=== PATIENT | female | born 1990 | race Caucasian/White ===

== ENCOUNTER 2019-12-10 10:02 | Emergency (ER) | payer OTHER, SELFPAY ==
--- NOTE | ~2019-12-10 | XR_ITS ---
EXAMINATION: XR chest 1V portable DATE: 12/10/2019 11:14 INDICATION: Diabetic ketoacidosis. TECHNIQUE: frontal view of the chest was obtained. COMPARISON: None FINDINGS: The lungs are clear with no focal airspace opacities, pulmonary edema, pleural effusion or pneumothor ax. The cardiomediastinal silhouette is normal. Visualized bones and soft tissues are unremarkable. IMPRESSION: 1. Normal chest radiograph. Reviewed, dictated and finalized at location A. IMPRESSION: 1. Normal chest radiograph.
[2019-12-10 10:05] VITALS: BP 128/60; PULSE 85; RESP 12; TEMP 36.1; O2SAT 95
[2019-12-10 10:10] VITALS: PULSE 135
[2019-12-10] MEDS: INSULIN HUMAN REGULAR (*BKC) 100 UNITS in SODIUM CHLORIDE 0.9% IV 99 ML IV CONT (11:04)
[2019-12-10] MEDS: ONDANSETRON INJ 4 MG/2 ML VIAL 8 MG IV PUSH (11:04)
[2019-12-10 11:06] LABS: Hematocrit 44.3 % (35.0-49.0); Hemoglobin 13.7 g/dL (12.0-15.0); Mean Corpuscular HGB Conc 30.9 g/dL (32.0-36.0); Mean Corpuscular Hemoglobin 30.2 pg (27.0-31.0); Mean Corpuscular Volume 97.6 fL (78.0-102.0); Mean Platelet Volume 11.7 fl (9.2-11.8); Platelet Count Result 473 K/mm3 (150-420); Red Blood Count 4.54 M/mm3 (4.20-5.40); Red Cell Distribution Width 12.5 % (11.6-14.4)
[2019-12-10 11:08] LABS: White Blood Count 33.1 K/mm3 (4.8-10.8)
[2019-12-10] MEDS: SODIUM CHLORIDE 0.9% IV 2,000 ML 999 ML IV CONT (11:11)
[2019-12-10 11:23] LABS: Acetaminophen 0 ug/mL (10-30); Ethanol < 3 mg/dL (0-6); Salicylate 7.4 mg/dL (2.8-20.0)
[2019-12-10 11:26] LABS: Lactic Acid Reflex 3.4 mmol/L (0.4-2.0)
[2019-12-10 11:29] LABS: Add Urine Microscopic? YES; Appearance Urine Clear (Clear); Bilirubin Urine Negative (Negative); Blood Urine 1+ (Negative); Color Urine Yellow (Yellow); Glucose Urine UA 3+ (Negative); Ketones Urine 3+ (Negative); Leukocyte Esterase Ur Negative LEU/UL (Negative); Nitrate Urine Negative (Negative); Protein Urine Negative (Negative); Urobilinogen Urine 0.2 mg/dL (0.2-1.0)
[2019-12-10 11:31] LABS: Band Neutrophils Percent 0 % (0-6); Basophils Percent Manual 0 % (0-1); Eosinophils Percent Manual 0 % (1-6); Lymphocytes Absolute Manual 1.65 K/mm3 (1.1-4.5); Lymphocytes Percent Manual 5 % (18-44); Metamyelocytes Percent 0 %; Monocytes Absolute Manual 0.99 K/mm3 (0.1-0.90); Monocytes Percent Manual 3 % (3-9); Myelocytes Percent 2 %; Neutrophils Absolute Manual 29.79 K/mm3 (1.7-7.2); Neutrophils Percent Manual 90 % (46-73); Platelet Estimate Increased (Adequate); Total Cells Counted 100
[2019-12-10 11:32] VITALS: BP 118/63; PULSE 130; RESP 20; O2SAT 97
[2019-12-10 11:33] LABS: Alanine Aminotransferase 17 U/L (14-59); Albumin Level 3.7 g/dL (3.4-5.0); Alkaline Phosphatase 110 U/L (46-116); Anion Gap 37 mmol/L (8-16); Aspartate Amino Transferase 9 U/L (15-37); Bilirubin,Total 0.7 mg/dL (0.00-1.00); Blood Urea Nitrogen 49 mg/dL (7-18); Calcium 7.9 mg/dL (8.5-10.1); Carbon Dioxide 8 mmol/L (21-32); Chloride 79 mmol/L (98-108); Estimated CRCL calculation 24 ml/min; Estimated Glomerular Filt Rate 22; Magnesium 2.5 mg/dL (1.8-2.4); Sodium 124 mmol/L (136-145); Total Protein 7.3 g/dL (6.4-8.2)
[2019-12-10 11:34] LABS: Phosphorus > 8.0 mg/dL (2.6-4.7); Potassium 6.6 mmol/L (3.5-5.1)
[2019-12-10 11:35] LABS: Bacteria Urine None seen /hpf; RBC Urine 0-2 /hpf (0-2); WBC Urine 0-3 /hpf (0-3)
[2019-12-10 11:48] LABS: Glucose > 800 mg/dL (70-99); Osmolality Calculated 310 mOsm/kg (285-295)
[2019-12-10 11:49] LABS: Amphetamine Screen Urine Negative (Negative); Barbiturate Screen Urine Negative (Negative); Benzodiazepines Screen Urine Negative (Negative); Cannabinoid Screen Urine Negative (Negative); Cocaine Screen Urine Negative (Negative); Methadone Screen Urine Negative (Negative); Opiate Screen Urine Negative (Negative); Phencyclidine Screen Urine Negative (Negative)
--- NOTE | 2019-12-10 11:49 | PC.NURSE ---
1030 Multiple attempts made at IV insertion, pt. very weak, lethargic and ERP discussed central line c pt. Pt. agreeable via verbal consent to placement.
[2019-12-10 12:16] LABS: Base Excess ABG -23.7 mmol/L (0-2); HCO3 ABG 5.4 mmol/L (23-29); Oxygen Content ABG 16.9 %vol (16.0-22.0); Oxygen Saturation ABG 85.5 % (95-97); Oxyhemoglobin 84.8 % (94-100); PCO2 ABG 20.5 mmHg (35-45); PO2 ABG 54.8 mmHg (80-90); Total Hemoglobin 14.2 g/dL; pH ABG 7.04 (7.35-7.45)
[2019-12-10 12:18] LABS: Device ROOM AIR; Modified Allen's Test Unable to perform; Site Drawn LEFT RADIAL
[2019-12-10 12:29] VITALS: BP 120/60; PULSE 130; RESP 20; TEMP 36.7; O2SAT 100
--- NOTE | 2019-12-10 12:37 | PC.NURSE ---
Call placed to [facility] for pt. transfer, report given to janis Grider, will await call back from for report.
--- NOTE | 2019-12-10 12:45 | ED.GENADULT ---
HPI - General Adult General Chief complaint: Weakness Stated complaint: Ambulance Source: patient History of Present Illness HPI narrative: PATIENT IS A 29-YEAR-OLD FEMALE WHO PRESENTS TODAY HOME WITH SOME ALTERED LEVEL OF CONSCIOUSNESS. PATIENT STATES THAT SHE HAS BEEN VOMITING FOR THE LAST SEVERAL DAYS HAS BECOME PROGRESSIVELY GETTING WORSE. SHE HAS BEEN TAKING HER INSULIN, SHE STATES HER LAST DOSE WAS 45 UNITS OF LONG-ACTING THIS A.M.. PATIENT TELLS ME SHE HAS BEEN ILL FOR ABOUT A WEEK. SHE IS ACTIVELY VOMITING. SHE TELLS ME IT HAS BEEN SEVERAL YEARS SINCE SHE HAS BEEN IN DKA. SHE NORMALLY GETS HER CARE IN THE [facility]. PATIENT APPEARS VERY PALE AND VERY WEAK. Onset (ago): minute(s) Related Data Home Medications Medication Instructions Recorded Confirmed Unable to Obtain Home Medications 12/10/19 12/10/19 Allergies Allergy/AdvReac Type Severity Reaction Status Date / Time Penicillins Allergy Unknown Verified 12/10/19 11:14 [facility] Social History Social History (Updated 12/10/19 @ 12:55 by Esther Nino MD) Social History: PATIENT IS UNABLE TO RELATE THIS AT CURRENT TIME DUE TO HER FATIGUE AND MEDICAL CONDITION Exam Const: General: ill appearing Nutritional Appearance: thin Other: DEHYDRATED AND WEAK HENMT: Mouth: Yes dry mucous membranes Eyes: Conjunctivae: conjunctivae normal Pupils: Equal, round and reactive pupils present Neck: Neck: normal visual inspection Chest: Chest palpation & inspection: normal inspection of the chest Resp: Effort & Inspection: normal respiratory effort Auscultation: clear to auscultation bilaterally Cardio: Rate: tachycardic GI: GI Palp: Yes Soft to palpation and No Tenderness to palpation present (GI) Auscultation: normal bowel sounds Urinary Catheter: Urinary Catheter: patent and draining Back/Spine/Pelvis: Back: no CVA tenderness Skin: General skin exam: normal color and pallor Neuro: Other: ALERT AND IN NO DISTRESS Extrem: General: normal to inspection Psych: Attitude: cooperative Thought content: Yes Normal thought content present Course Vital Signs Vital signs: Vital Signs Temperature 36.1 C L 12/10/19 10:05 Pulse Rate 85 12/10/19 10:05 Respiratory Rate 12 12/10/19 10:05 Blood Pressure 128/60 12/10/19 10:05 Pulse Oximetry 95 12/10/19 10:05 Temperature 36.6 C 12/10/19 13:35 Pulse Rate 122 H 12/10/19 13:35 Respiratory Rate 18 12/10/19 13:35 Blood Pressure 123/65 12/10/19 13:35 Pulse Oximetry 100 12/10/19 13:35 Transfer Transfered to: [place] Accepting physician: dR. Lozano B/c we were unable to transport on insulin ggt, med was stopped and pt transported to [place] without insulin drip. It is a very breif transport Procedures Central Line Placement Right SC: Central Line Date: 12/10/19 Central Line Time: 11:50 Discussed w/ the patient/family/POA,the placement of a central venous catheter, including its clinical necessity/indication & associated potential risks, benifits and alternatives.: Yes Performed Emergently - Given emergent patient condition, temporal constraints may have precluded informed consent.: Yes Patient Placed on Monitor/Pulse Ox: Yes Max. Sterile Barrier Technique: Caps, large sterile sheet and hand hygiene Central Line Prep: 2% chlorhexidine scrub and sterile drapes applied Technique: sterile prep/drape Local Anesthetic: lidocaine 1% Amount of anesthesia used (mL): 5 Ultrasound Used for Placement: No Central Line Lumen Inserted: triple Post Procedure: sutured in place, good blood return, all ports aspirated, flushed, capped and sterile dressing applied Post Procedure X-Ray: tip of catheter in good position and no pneumothorax seen Patient Tolerated Procedure: well and no complications Complications: none Medical Decision Making MDM Narrative Medical decision traci
[2019-12-10] MEDS: SODIUM CHLORIDE 0.9% IV 1,000 ML 999 ML IV CONT (13:16)
[2019-12-10 13:35] VITALS: BP 123/65; PULSE 122; RESP 18; TEMP 36.6; O2SAT 100
[2019-12-10 13:42] LABS: Glucose Point of Care > 450 (65-105)
--- NOTE | 2019-12-10 13:49 | PC.NURSE ---
Blood sugar still reading over 500
[2019-12-10 14:01] LABS: Reflex Lactic Acid Yes or No Add Lactic
== END 2019-12-10 13:55 | disposition short-term general hospital (02) ==
PROVIDERS: Emergency Provider Emergency Medicine
DX: E10.10 Type 1 diabetes mellitus with ketoacidosis without coma (principal); E86.0 Dehydration
CPT/HCPCS: 36556; 36415; 36600; 71045; 80053; 80307; 81001; 82010; 82805; 83605; 83735; 84100; 85025; 96361; 96365; 96366; 96368; 96375; 99283; 99285; C1751; J1815; J1956; J2405; J7030

== ENCOUNTER 2019-12-10 15:10 | Inpatient (IN) | payer OTHER, SELFPAY ==
[2019-12-10 15:30] LABS: Glucose Point of Care > 500 (65-105)
[2019-12-10] MEDS: INSULIN HUMAN REGULAR (*BKC) 100 UNITS in SODIUM CHLORIDE 0.9% IV 99 ML 10.5 UNITS IV CONT (15:30)
[2019-12-10] MEDS: SODIUM CHLORIDE 0.9% IV 1,000 ML 150 ML IV CONT (15:30)
--- NOTE | 2019-12-10 15:50 | PM.IMHP ---
H&P: HPI History of Present Illness Date/Time: 12/10/19 15:50 Chief complaint: DKA Narrative: Eve Lala is a 29-year-old female with type 1 diabetes mellitus who presented to the emergency department at [facility] earlier today via EMS with weakness and altered levels of consciousness found to be in diabetic ketoacidosis for which she is being transferred to [facility] for further management. She has never been seen at this facility before and apparently gets most of her care in the [facility]. At the time my evaluation she is somnolent but arousable however is very somnelent and thus she is not a great historian. From what I can gather from the records, she has been feeling poorly for nearly one weeks time with nausea and vomiting. On occasion she has noticed dark brown emesis which she believes may be blood and she endorses heartburn and a burning sensation in her throat. She has become progressively more weak with lightheadedness and dizziness, as well as some confusion today. She states compliance with her insulin, reportedly taking 45 units of long-acting insulin this morning. She has not been in DKA for several years, reportedly. At the time my evaluation she is somnolent and is complaining of continued nausea and dry heaves. She endorses feelings of racing heart and mild shortness of breath. She has not had fever, chills, or sweats. She denies cough, sinus congestion, rhinorrhea, otalgia, and odynophagia. No chest pain or pleuritic pain. She denies sick contacts or exposure to those positive for COVID-19. Review of Systems Review of Systems: Narrative: Twelve systems were reviewed with pertinent positives and negatives as per HPI. Given her somnolence, it is somewhat difficult to get a full review of systems. Except as documented in the HPI, she also reports mild dysuria. She does not remember when she last had a menstrual cycle. No headache or neck ache. She is not recall her last hemoglobin A1c. Except as documented, all other systems were reviewed and are negative. [facility] Past Medical History Medical History Type 1 diabetes mellitus Diagnosed at the age of 16. Hemoglobin A1c on 12/10/2019 was 10%. Surgical History Surgical History (Updated 12/10/19 @ 16:42 by Angeles Castro PA-C) Status post myringotomy with insertion of tube Social History Social History (Updated 12/10/19 @ 16:44 by Angeles Castro PA-C) Social History: The patient lives in [place]. She relates to me that she has no children. She is not employed. She admits to smoking cigarettes, but does not quantify. She denies alcohol and illicit substance use. She does not want anyone contacted that she is in the hospital, and will not name a surrogate decision maker. Smoking status: Current every day smoker Alcohol intake: unknown Substance use: unknown Other substance usage details: ALOC Gender identity (if verbalized by the patient): Female Spiritual care concerns: No (ALOC) Meds Home Medications and Allergies Home Medications Medication Instructions Recorded Confirmed Type Admelog SoloStar U-100 Insulin TIDWMEAL 12/11/19 History Basaglar KwikPen U-100 Insulin HS 12/11/19 History Allergies Allergy/AdvReac Type Severity Reaction Status Date / Time Penicillins Allergy Unknown Verified 12/10/19 11:14 Exam Narrative: Exam Narrative: General: Thin, ill-appearing female, frequently dry heaving. In between dry heaving, she will close her eyes and is difficult to get her to answer any questions. She is soft spoken. HEENT: Atraumatic. Pupils are 4 mm and are reactive. Conjunctiva mildly injected. Sclerae anicteric. Oral mucosa is extremely dry. Oropharynx not visualized as she would not open her mouth very far. Neck: Supple. No nuchal rigidity or lymphadenopathy. Respiratory: Respirations are mildly tachypneic
[2019-12-10 16:00] VITALS: BP 101/58; PULSE 130; PULSE 137; RESP 16; TEMP 37.1; O2SAT 100
[2019-12-10 16:30] LABS: Anion Gap 24 mmol/L (8-16); Blood Urea Nitrogen 32 mg/dL (7-17); Calcium 7.2 mg/dL (8.4-10.2); Carbon Dioxide 8 mmol/L (22-30); Chloride 105 mmol/L (98-107); Estimated Glomerular Filt Rate 53; Glucose 481 mg/dL (65-105); Magnesium 2.1 mg/dL (1.6-2.3); Phosphorus 2.7 mg/dL (2.5-4.5); Sodium 137 mmol/L (137-145)
[2019-12-10 16:31] LABS: Albumin Level 3.6 g/dL (3.5-5.1); Anion Gap 24 mmol/L (8-16); Blood Urea Nitrogen 32 mg/dL (7-17); Calcium 7.2 mg/dL (8.4-10.2); Carbon Dioxide 9 mmol/L (22-30); Chloride 104 mmol/L (98-107); Estimated Glomerular Filt Rate 53; Glucose 476 mg/dL (65-105); Phosphorus 2.6 mg/dL (2.5-4.5); Potassium 4.9 mmol/L (3.4-5.0); Sodium 137 mmol/L (137-145)
[2019-12-10 16:32] LABS: Anion Gap 22 mmol/L (8-16); Blood Urea Nitrogen 33 mg/dL (7-17); Calcium 7.3 mg/dL (8.4-10.2); Carbon Dioxide 10 mmol/L (22-30); Chloride 105 mmol/L (98-107); Estimated Glomerular Filt Rate 53; Glucose 473 mg/dL (65-105); Sodium 137 mmol/L (137-145)
[2019-12-10 17:39] LABS: Lactic Acid 1.1 mmol/L (0.7-2.1); Salicylate < 1.0 mg/dL (2-20)
[2019-12-10 17:42] LABS: CRP 0.9 mg/dL (<1.0)
[2019-12-10 18:00] VITALS: BP 116/68; PULSE 130; RESP 18; O2SAT 100
[2019-12-10 18:03] LABS: Glucose Point of Care 390 (65-105)
[2019-12-10 18:03] LABS: Glucose Point of Care 441 (65-105)
[2019-12-10 18:38] LABS: Glucose Point of Care 315 (65-105)
[2019-12-10 20:00] VITALS: BP 122/54; PULSE 129; RESP 12; TEMP 36.9; O2SAT 100
[2019-12-10] MEDS: KCL 20 MEQ/D5/0.45% SOD CHL 1,000 ML 150 ML IV CONT (20:37)
[2019-12-10] MEDS: FAMOTIDINE 20 MG/2 ML VIAL IV PUSH (21:00)
[2019-12-10 21:06] LABS: Add Urine Microscopic? YES; Appearance Urine Clear (Clear); Bilirubin Urine Negative (Negative); Blood Urine 1+ (Negative); Color Urine Straw (Yellow); Glucose Urine UA 3+ mg/dL (Negative); Ketones Urine 2+ mg/dL (Negative); Leukocyte Esterase Ur Negative LEU/UL (NEGATIVE); Mucus Urine Rare /lpf; Nitrate Urine Negative (Negative); Protein Urine Negative (Negative); RBC Urine 0-2 /hpf (0-2); Specific Grav Ur 1.015 (1.001-1.035); Squamous Epithelial Cell Urine Few /hpf (Few); Urobilinogen Urine Negative mg/dL (<2.0); WBC Urine 0-3 /hpf (0-3)
--- NOTE | 2019-12-10 21:10 | PC.NURSE ---
bedside urine test was negative
[2019-12-10 22:00] VITALS: BP 122/57; PULSE 120; RESP 14; O2SAT 99
[2019-12-11] VITALS (10 sets, daily range): BP systolic 116–138; BP diastolic 62–89; PULSE 108–119; RESP 13–21; TEMP 36.8–37.4; O2SAT 98–100
[2019-12-11 00:31] LABS: Glucose Point of Care 174 (65-105)
[2019-12-11 00:37] LABS: Anion Gap 3 mmol/L (8-16); Blood Urea Nitrogen 23 mg/dL (7-17); Calcium 7.7 mg/dL (8.4-10.2); Carbon Dioxide 24 mmol/L (22-30); Chloride 113 mmol/L (98-107); Estimated Glomerular Filt Rate > 60; Glucose 165 mg/dL (65-105); Sodium 140 mmol/L (137-145)
[2019-12-11 01:37] LABS: Glucose Point of Care 163 (65-105)
[2019-12-11] MEDS: INSULIN GLARGINE (*BKC) 100 UNITS/ML 45 UNITS SUB-Q (02:00)
[2019-12-11] MEDS: SODIUM CHLORIDE 0.9% IV 1,000 ML 50 ML IV CONT (02:30)
[2019-12-11 04:53] LABS: Basophils Percent Auto 0.1 % (0.2-1.2); Hematocrit 33.5 % (37.0-47.0); Hemoglobin 11.6 g/dL (12.0-15.0); Immature Granulocyte Absolute 0.25 K/mm3 (0.00-0.031); Immature Granulocyte Percent A 1.1 % (0-0.5); Lymphocytes Absolute Auto 1.15 K/mm3 (0.9-3.2); Mean Corpuscular HGB Conc 34.6 g/dl (32-36); Mean Corpuscular Hemoglobin 30.1 pg (26-34); Mean Platelet Volume 10.4 fl (7.4-10.4); Monocytes Absolute Auto 1.5 K/mm3 (0.1-0.6); Monocytes Percent Auto 6.5 % (2.6-8.5); Neutrophils Absolute Auto 20.2 K/mm3 (1.3-6.7); Neutrophils Percent Auto 87.3 % (45.5-73.1); Platelet Count Result 302 k/mm3 (150-375); Red Blood Count 3.85 M/mm3 (4.2-5.4); Red Cell Distribution Width 12.8 % (11.5-14.5); White Blood Count 23.2 K/mm3 (4.5-10.0)
[2019-12-11 05:07] LABS: Alanine Aminotransferase 10 U/L (4-35); Albumin Level 3.1 g/dL (3.5-5.1); Alkaline Phosphatase 73 U/L (38-126); Anion Gap 9 mmol/L (8-16); Aspartate Amino Transferase 12 U/L (14-36); Bilirubin,Total 0.3 mg/dL (0.2-1.3); Blood Urea Nitrogen 19 mg/dL (7-17); Calcium 7.7 mg/dL (8.4-10.2); Carbon Dioxide 19 mmol/L (22-30); Chloride 110 mmol/L (98-107); Estimated Glomerular Filt Rate > 60; Glucose 222 mg/dL (65-105); Phosphorus 2.5 mg/dL (2.5-4.5); Potassium 4.1 mmol/L (3.4-5.0); Sodium 138 mmol/L (137-145)
[2019-12-11 05:28] LABS: Lactic Acid Reflex < 0.5 mmol/L (0.7-2.1)
[2019-12-11] MEDS: LACTATED RINGERS 1,000 ML 999 ML IV CONT (08:10)
[2019-12-11 08:21] LABS: Glucose Point of Care 285 (65-105)
[2019-12-11] MEDS: FAMOTIDINE 20 MG/2 ML VIAL IV PUSH ×2 (08:24→22:00)
[2019-12-11] MEDS: INSULIN ASPART (*BKC) 100 UNITS/ML SUB-Q ×4 (08:24→18:46)
--- NOTE | 2019-12-11 08:55 | WPDCNINT ---
Assessment and Plan Assessment and plan (1) Diabetic ketoacidosis, type I: Code(s): E10.10 - Type 1 diabetes mellitus with ketoacidosis without coma Status: Acute Assessment and Plan: patient presents to [facility] with hyperglycemia, nausea, vomiting, weakness, dizziness, confusion - was found to be in DKA, was given adequate IV fluids, started on insulin infusion and transferred to [facility] ICU for further management - anion gap is closed this morning, patient was transition to long-acting insulin and sliding scale insulin along with Accu-Cheks - hemoglobin A1c is 10.0 this admission - patient is a poor historian and refusing to provide information regarding her compliance with insulin (2) Acute kidney injury: Code(s): N17.9 - Acute kidney failure, unspecified Status: Acute Assessment and Plan: patient initially presented with of 2.6 on admission. Likely related to polyuria, hypovolemia, diabetes related, nausea vomiting - patient was adequately fluid-resuscitated, adequate urine output, - creatinine down to 0.7 - continue monitor renal function, electrolytes and urine output (3) Leukocytosis: Code(s): D72.829 - Elevated white blood cell count, unspecified Status: Acute Assessment and Plan: leukocytosis likely stress lately. UA does not reveal a UTI, chest x-ray is clear without any evidence of acute cardiopulmonary disease - WBC count trending down, continue to monitor (4) Metabolic encephalopathy: Code(s): G93.41 - Metabolic encephalopathy Status: Acute Assessment and Plan: likely secondary to DKA, acute kidney injury, electrolyte abnormality - encephalopathy improving, continue to monitor Additional Plan discussed with patient updated her with her condition and plan of care code status: Full code critical care time spent: 38 minutes Due to a high probability of clinically significant, life threatening deterioration, the patient required my highest level of preparedness to intervene emergently and I personally spent this critical care time directly and personally managing the patient. This critical care time included obtaining a history; examining the patient; pulse oximetry; ordering and review of studies; arranging urgent treatment with development of a management plan; evaluation of patient's response to treatment; frequent reassessment; and discussions with other providers. It was exclusive of separately billable procedures and treating other patients and teaching time. Please see Assessment and Plan section and the rest of the note for further information on patient assessment and treatment [facility] Consult Note Consult date: 12/11/19 Time Seen: 07:02 Reason for consult: diabetic ketoacidosis, nausea, vomiting, lightheadedness, weakness and confusion HPI: Eve Lala is a 29 year old female with significant past medical history of diabetes type 1 on long-acting insulin presented to [facility] on 12/10/2019 with complains of weakness, confusion, hyperglycemia, nausea and vomiting. Patient was found to be in DKA, received IV fluids and started on insulin infusion and transferred to [facility] ICU for further management. Patient also complained of tachycardia and mild shortness of breath. She denies any fevers chills or sweats. She denies any cough, sinus congestion. She denies any exposure to COVID-19. Transferred to [place] ICU for further management. patient seen and examined this morning. Is somnolent, does not want to answer questions. States she still not feeling too well, but denies nausea, vomiting, abdominal pain, shortness of breath, chest pain. Patient remains tachycardic, blood pressures are stable. Patient has had significant urine output negative 1.5 L fluid balance. -The RN to give her 1 L bolus of LR. Patient has been transitioned to long-acting insulin an
[2019-12-11 12:38] LABS: Glucose Point of Care 240 (65-105)
--- NOTE | 2019-12-11 14:06 | PC.NURSE ---
Pt transferred to room 323 at 1400 with all belongings. Report called to Minh BOLIVAR.
--- NOTE | 2019-12-11 14:11 | PC.NURSE ---
Report recived from Cathy RN /ICU. Pt arrived into 223-1 at 1400 via hospital bed. Pt was aware and alert 1-2. no distress noted.Pt resting at this time.
[2019-12-11 14:12] LABS: Glucose Point of Care 200 (65-105)
[2019-12-11 14:13] LABS: Glucose Point of Care 198 (65-105)
[2019-12-11 14:15] LABS: Glucose Point of Care 314 (65-105)
[2019-12-11 14:16] LABS: Glucose Point of Care 201 (65-105)
[2019-12-11 14:17] LABS: Glucose Point of Care 290 (65-105)
--- NOTE | 2019-12-11 16:32 | PM.IMPN ---
Progress Note: A&P Assessment and Plan (1) Diabetic ketoacidosis, type I: Code(s): E10.10 - Type 1 diabetes mellitus with ketoacidosis without coma Status: Acute Assessment and Plan: With severe hyperglycemia, ketoacidosis, and metabolic acidosis. Precipitating etiology seems to be gastritis, as patient states compliance with her home insulin She was started on insulin drip which will be titrated per DKA protocol. transitioned Lantus early a.m. after midnight when ketones cleared ,CO2 andi, and gap closed (2) Acute kidney injury: Code(s): N17.9 - Acute kidney failure, unspecified Status: Acute Assessment and Plan: Secondary to profound dehydration from many days worth of vomiting and poor oral intake. Renal function normal today with creatinine 0.7. (3) Dehydration: Code(s): E86.0 - Dehydration Status: Inactive Assessment and Plan: Due to poor oral intake and several days with vomiting. Plan as detailed above. (4) Electrolyte abnormality: Code(s): E87.8 - Other disorders of electrolyte and fluid balance, not elsewhere classified Status: Acute Assessment and Plan: Including hyperkalemia (6.6) and hyponatremia (124 but when corrected for glucose her sodium is a least 135). Na 138 and K 4.1 today (5) Leukocytosis: Code(s): D72.829 - Elevated white blood cell count, unspecified Status: Acute Assessment and Plan: Possible look moist reaction, chest x-ray and UA without evidence of infection with a benign abdominal exam. Lactic acid level was elevated, however that may be due to her profound dehydration. cultures NG so for including neg strep screen. wbc down to 22k and will follow (6) Metabolic acidosis: Code(s): E87.2 - Acidosis Status: Acute Assessment and Plan: Secondary to diabetic ketoacidosis in addition to lactic acidosis, likely from dehydration. with hydration and insulin drip co2 increased and lactate normal (7) Metabolic encephalopathy: Code(s): G93.41 - Metabolic encephalopathy Status: Acute Assessment and Plan: Secondary to DKA, acute kidney injury, and multiple electrolyte abnormalities. No history or exam findings to suggest underlying infection or meningitis. improved after above corrected Subjective Date/time seen: 12/11/19 16:32 Interval history: 21-year-old type 1 diabetic admitted with nausea and vomiting and diabetic ketoacidosis. Ketones cleared with CO2 rising and gap closing late last evening and started on Lantus. This a.m. no further nausea and vomiting but still sleepy and not very conversant with no specific complaints other than occasional sore throat Exam Narrative: Exam Narrative: blood pressure 116/62 pulse is 100 respirations 20 per minute afebrile General: Thin, ill-appearing female, on her right side and appears comfortable now HEENT: Pupils are 4 mm and are reactive. Sclerae anicteric. Neck: Supple. . Respiratory: lungs clear. Cardiovascular: Tachycardic with S1-S2. No murmur or rub. Gastrointestinal: Abdomen is soft and nondistended with positive bowel sounds. Skin: Warm and dry. Multiple tattoos on the upper and lower extremities. Extremities: No edema. Radial and pedal pulses intact. Neurological: Alert and oriented to name, age, date of , and hospital. . Cranial nerves 2-12 are grossly intact. Speech is soft but clear. No facial asymmetry. No gross focal deficits Psychiatric: Somnolent but arous
[2019-12-11 17:11] LABS: Albumin Level 2.9 g/dL (3.5-5.1); Anion Gap 9 mmol/L (8-16); Blood Urea Nitrogen 10 mg/dL (7-17); Calcium 7.9 mg/dL (8.4-10.2); Carbon Dioxide 22 mmol/L (22-30); Chloride 104 mmol/L (98-107); Estimated Glomerular Filt Rate > 60; Glucose 158 mg/dL (65-105); Phosphorus 1.5 mg/dL (2.5-4.5); Potassium 3.8 mmol/L (3.4-5.0); Sodium 135 mmol/L (137-145)
[2019-12-11 17:47] LABS: Glucose Point of Care 146 (65-105)
[2019-12-11] MEDS: POTASSIUM PHOS,M-BASIC-D-BASIC 20 MMOL in SODIUM CHLORIDE 0.9% IV 250 ML 62.5 MMOL IVPB (18:47)
--- NOTE | 2019-12-11 21:00 | PC.NURSE ---
Stated, When did I come in? . Reviewed chart with patient. Stated, I don't remember coming in. Discussed plan of care. Time spent at bedside.
[2019-12-11] MEDS: BENZOCAINE/MENTHOL (*BKC) 18 EA LOZENGE 1 LOZENGE PO (21:50)
[2019-12-11 22:29] LABS: Glucose Point of Care 103 (65-105)
[2019-12-12 05:28] LABS: Basophils Percent Auto 0.1 % (0.2-1.2); Eosinophils Percent Auto 0.1 % (0-4.4); Hematocrit 32.2 % (37.0-47.0); Immature Granulocyte Absolute 0.06 K/mm3 (0.00-0.031); Immature Granulocyte Percent A 0.4 % (0-0.5); Lymphocytes Absolute Auto 2.35 K/mm3 (0.9-3.2); Lymphocytes Percent Auto 17.5 % (18.3-44.2); Mean Corpuscular HGB Conc 34.2 g/dl (32-36); Mean Corpuscular Hemoglobin 29.9 pg (26-34); Mean Corpuscular Volume 87.5 fl (80-100); Mean Platelet Volume 10.3 fl (7.4-10.4); Monocytes Percent Auto 7.1 % (2.6-8.5); Neutrophils Percent Auto 74.8 % (45.5-73.1); Platelet Count Result 233 k/mm3 (150-375); Red Blood Count 3.68 M/mm3 (4.2-5.4); Red Cell Distribution Width 12.8 % (11.5-14.5); White Blood Count 13.4 K/mm3 (4.5-10.0)
[2019-12-12 05:40] LABS: Albumin Level 2.9 g/dL (3.5-5.1); Anion Gap 4 mmol/L (8-16); Blood Urea Nitrogen 7 mg/dL (7-17); Calcium 7.9 mg/dL (8.4-10.2); Carbon Dioxide 30 mmol/L (22-30); Chloride 101 mmol/L (98-107); Estimated CRCL calculation 100 ml/min; Estimated Glomerular Filt Rate > 60; Glucose 177 mg/dL (65-105); Phosphorus 1.7 mg/dL (2.5-4.5); Potassium 3.3 mmol/L (3.4-5.0); Sodium 135 mmol/L (137-145)
[2019-12-12 06:00] VITALS: BP 124/77; PULSE 92; RESP 16; TEMP 36.7; O2SAT 98
[2019-12-12 06:51] LABS: Glucose Point of Care 170 (65-105)
[2019-12-12 08:37] LABS: Glucose Point of Care 180 (65-105)
[2019-12-12] MEDS: FAMOTIDINE 20 MG/2 ML VIAL IV PUSH (09:14)
[2019-12-12] MEDS: INSULIN ASPART (*BKC) 100 UNITS/ML SUB-Q ×5 (09:17→18:01)
[2019-12-12] MEDS: POTASSIUM PHOS,M-BASIC-D-BASIC 20 MMOL in SODIUM CHLORIDE 0.9% IV 250 ML 62.5 MMOL IVPB (09:18)
[2019-12-12] MEDS: BENZOCAINE/MENTHOL (*BKC) 18 EA LOZENGE 1 LOZENGE PO ×2 (09:22→17:24)
[2019-12-12 10:30] VITALS: BMI 23.5
[2019-12-12] MEDS: POTASSIUM CHLORIDE 20 MEQ PACKET (FOR LIQUID) 40 MEQ PO (11:02)
[2019-12-12 12:24] LABS: Glucose Point of Care 242 (65-105)
[2019-12-12 12:44] LABS: Glucose Point of Care 275 (65-105)
[2019-12-12] MEDS: INSULIN HUMAN NPH (*BKC) 100 UNITS/ML 15 UNITS SUB-Q (12:50)
[2019-12-12] MEDS: CENTRAL LINE FLUSH 10 ML IV PUSH (13:40)
[2019-12-12 14:00] VITALS: BP 131/95; PULSE 98; RESP 18; TEMP 36.9; O2SAT 99
[2019-12-12 15:17] LABS: Glucose Point of Care 216 (65-105)
[2019-12-12] MEDS: NEOMYCIN/POLYMYXIN/BACITRACIN OINTMENT PACKET 1 PACKET (16:35)
[2019-12-12 18:23] LABS: Glucose Point of Care 253 (65-105)
--- NOTE | 2019-12-17 13:25 | P.DS_ITS ---
DS: Admitting Diagnosis Admitting Diagnosis Admitting Diagnosis: DKA DS: Discharge Diagnosis Discharge Diagnosis (1) Diabetic ketoacidosis, type I: Code(s): E10.10 - Type 1 diabetes mellitus with ketoacidosis without coma Status: Acute Assessment and Plan: * With severe hyperglycemia, ketoacidosis, and metabolic acidosis. * Precipitating etiology seems to be gastritis, as patient states compliance with her home insulin * She was started on insulin drip which will be titrated per DKA protocol. transitioned Lantus early a.m. after midnight when ketones cleared ,CO2 andi, and gap closed * At discharge fbs 130 and c02 30.. agricultural extension educator discussed at lent her management and decreased her basalglar to 30 hs with consistant admelog with meals (2) Acute kidney injury: Code(s): N17.9 - Acute kidney failure, unspecified Status: Acute Assessment and Plan: * Secondary to profound dehydration from many days worth of vomiting and poor oral intake. * Renal function normal with creatinine 0.7 at discharge. (3) Dehydration: Code(s): E86.0 - Dehydration Status: Inactive Assessment and Plan: * Due to poor oral intake and several days with vomiting. resolved with hydration and correction of acidosis (4) Electrolyte abnormality: Code(s): E87.8 - Other disorders of electrolyte and fluid balance, not elsewhere classified Status: Acute Assessment and Plan: * Including hyperkalemia (6.6) and hyponatremia (124 but when corrected for glucose her sodium is a least 135). * Na 133 and K 3.3 whick was supplemented before d/c (5) Leukocytosis: Code(s): D72.829 - Elevated white blood cell count, unspecified Status: Acute Assessment and Plan: * , chest x-ray and UA without evidence of infection with a benign abdominal exam. * Lactic acid level was elevated, however that may be due to her profound dehydration. * cultures NG so for including neg strep screen. wbc down to 13K by discharge (6) Metabolic acidosis: Code(s): E87.2 - Acidosis Status: Acute Assessment and Plan: * Secondary to diabetic ketoacidosis in addition to lactic acidosis, likely from dehydration. * with hydration and insulin drip co2 increased(30 at discharge) and lactate normal (7) Metabolic encephalopathy: Code(s): G93.41 - Metabolic encephalopathy Status: Acute Assessment and Plan: * Secondary to DKA, acute kidney injury, and multiple electrolyte abnormalities. * No history or exam findings to suggest underlying infection or meningitis. * improved after above corrected DS: Summary Hospital Course Hospital Course: 29-year-old type 1 diabetic admitted with diabetic ketoacidosis with lactic acidosis and acute renal failure secondary to gastritis. With aggressive hydration insulin drip blood sugars resolved, ketones cleared, and lactic acid returned to normal. And by discharge her CO2 was up to 30 and fasting blood sugar 130. Back on her Lantus and short-acting admelog seen by nurses educator will follow-up with her primar
--- NOTE | 2019-12-17 13:25 | PM.DS ---
DS: Admitting Diagnosis Admitting Diagnosis Admitting Diagnosis: DKA DS: Discharge Diagnosis Discharge Diagnosis (1) Diabetic ketoacidosis, type I: Code(s): E10.10 - Type 1 diabetes mellitus with ketoacidosis without coma Status: Acute Assessment and Plan: With severe hyperglycemia, ketoacidosis, and metabolic acidosis. Precipitating etiology seems to be gastritis, as patient states compliance with her home insulin She was started on insulin drip which will be titrated per DKA protocol. transitioned Lantus early a.m. after midnight when ketones cleared ,CO2 andi, and gap closed At discharge fbs 130 and c02 30.. chemical educator discussed at lenght her management and decreased her basalglar to 30 hs with consistant admelog with meals (2) Acute kidney injury: Code(s): N17.9 - Acute kidney failure, unspecified Status: Acute Assessment and Plan: Secondary to profound dehydration from many days worth of vomiting and poor oral intake. Renal function normal with creatinine 0.7 at discharge. (3) Dehydration: Code(s): E86.0 - Dehydration Status: Inactive Assessment and Plan: Due to poor oral intake and several days with vomiting. resolved with hydration and correction of acidosis (4) Electrolyte abnormality: Code(s): E87.8 - Other disorders of electrolyte and fluid balance, not elsewhere classified Status: Acute Assessment and Plan: Including hyperkalemia (6.6) and hyponatremia (124 but when corrected for glucose her sodium is a least 135). Na 133 and K 3.3 whick was supplemented before d/c (5) Leukocytosis: Code(s): D72.829 - Elevated white blood cell count, unspecified Status: Acute Assessment and Plan: , chest x-ray and UA without evidence of infection with a benign abdominal exam. Lactic acid level was elevated, however that may be due to her profound dehydration. cultures NG so for including neg strep screen. wbc down to 13K by discharge (6) Metabolic acidosis: Code(s): E87.2 - Acidosis Status: Acute Assessment and Plan: Secondary to diabetic ketoacidosis in addition to lactic acidosis, likely from dehydration. with hydration and insulin drip co2 increased(30 at discharge) and lactate normal (7) Metabolic encephalopathy: Code(s): G93.41 - Metabolic encephalopathy Status: Acute Assessment and Plan: Secondary to DKA, acute kidney injury, and multiple electrolyte abnormalities. No history or exam findings to suggest underlying infection or meningitis. improved after above corrected DS: Summary Hospital Course Hospital Course: 29-year-old type 1 diabetic admitted with diabetic ketoacidosis with lactic acidosis and acute renal failure secondary to gastritis. With aggressive hydration insulin drip blood sugars resolved, ketones cleared, and lactic acid returned to normal. And by discharge her CO2 was up to 30 and fasting blood sugar 130. Back on her Lantus and short-acting admelog seen by medical educator will follow-up with her primary care. Activity as tolerated Time Spent with Patient Time attestation: Total time spent providing and/or coordinating discharge services: 35 minutes Exam Narrative: Exam Narrative: condition on discharge blood pressure 130/90 pulse is 86 saturating 99% on room air afebrile lungs clear CV regular rate rhythm abdomen soft nontender no masses extremities without edema distal pulses are 2+ taking her diabetic diet without any compl
== END 2019-12-12 18:40 | disposition home or self-care (01) | DRG 420 ==
LOC: ANHICU 19:42 → ANH3MEDSUR 12-11 14:50
PROVIDERS: Physician Assistant; Admitting Provider Internal Medicine; Visit Provider Internal Medicine
DX: E10.10 Type 1 diabetes mellitus with ketoacidosis without coma (principal); G93.41 Metabolic encephalopathy; N17.9 Acute kidney failure, unspecified; E87.5 Hyperkalemia; E86.0 Dehydration; E87.1 Hypo-osmolality and hyponatremia; D72.829 Elevated white blood cell count, unspecified; F17.210 Nicotine dependence, cigarettes, uncomplicated; Z79.4 Long term (current) use of insulin; Z88.0 Allergy status to penicillin
CPT/HCPCS: 36415; 80048; 80053; 80069; 80307; 81001; 83036; 83605; 83735; 84100; 85025; 86140; 87040; 87081; 87880; A9270; J1650; J1815; J2405; J3480; J7030; J7050; J7120